=== PATIENT | female | born 1955 | race Caucasian/White ===

== ENCOUNTER → 2019-12-15 11:47 | Outpatient (CLI) | payer MEDICARE, OTHER, SELFPAY ==
[2019-12-02 09:41] VITALS: BMI 25.4
--- NOTE | 2019-12-15 | BRBX_PTH ---
PATIENT: PATRICIA EGAN LOC: [facility] U#:[id number] AGE/SX: 69/F ROOM: RE12/15/[address]: Dr. Nate King MD : 1955 BED: DIS: SPEC #: [id number] RECD: 12/15/19 13:44 STATUS: JUSTINO YI #: [id number] CHRISTY: 12/15/19 00:[address]: Nate King DEPT: SURGICAL PATHOLOGY RECD BY: Cody Angeles Tissues: Right breast, NOS Procedures: Surgery Specimen Level IV HEADER OPERATION: Ultrasound-guided right breast biopsy PRE-OP DIAGNOSIS: Abnormal mammogram TISSUE SUBMITTED: Right breast MICROSCOPIC DIAGNOSIS Right breast, ultrasound-guided core biopsy: Fragments of benign breast tissue with focal dense fibrosis. Negative for atypia or malignancy. See comment. JO ANN:olimpia 12/17/19 COMMENT Correlation with clinical, radiologic findings and appropriate follow up are necessary. Case has been reviewed in consultation with Dr. Webb who concurs with the above diagnosis. IDC:AM MICROSCOPIC DESCRIPTION Slides are reviewed. GROSS DESCRIPTION Received in fixative is one container labeled with the patient's name and designated right breast. The specimen consists of multiple irregular and elongated fragments of yellow-mendoza soft tissue that in aggregate measure 2 x 0.5 x 0.1 cm. The specimen is totally submitted in one cassette. / AM:olimpia 12/16/19 TC:5 CPT: 28866
--- NOTE | 2019-12-15 11:51 | US_ITS ---
MAMMOGRAPHY - UNILATERAL DIAGNOSTIC: RIGHT BREAST REASON FOR EXAM: Female, 64 years old. Biopsy rt breast 9:00 +4 PERTINENT HISTORY: Non-contributory. TECHNIQUE: Digital examination. Mediolateral oblique (MLO) and craniocaudad (CC) views of the breast were obtained. CAD: COMPARISON: Comparison is made with prior ultrasound dated December 15, 2019. FINDINGS: Breast Composition: The breasts are heterogeneously dense, which may obscure small masses. A tissue clip marker is seen in the anterior upper lateral aspect of the right breast. No other significant abnormalities are identified. US/US Breast Biopsy 1st Lesion IMPRESSION: A tissue clip marker is seen in the anterior upper lateral portion of the right breast. ASSESSMENT CATEGORY: BIRADS Category 2: Benign. A letter regarding these results will be sent to the patient by the facility within 30 days. FOLLOW-UP RECOMMENDATION: Approximately 10% of breast cancers are not detected by mammography. A normal mammogram should not delay biopsy of a clinically suspicious abnormality. Electronically Signed: Mario Alberto Dowd, at 14:11 EDT , Service support ,
--- NOTE | 2019-12-15 13:24 | PCM.OPRPT ---
Problem List (1) Abnormal mammogram of right breast Status: Acute Report of Operation Date of Procedure: 12/15/19 Pre-Operative Diagnosis: Abnormal mammogram right Post-Operative Diagnosis: Same Surgery/Procedure Performed:: Ultrasound-guided handheld mammotome breast biopsy right Type of Anesthesia:: Local Estimated Blood Loss (mL): < 25 cc Description of Procedure: Was brought into the ultrasound room. Ultrasound of the right breast in the upper outer quadrant revealed the lesion in question. Prepped the skin with chlorhexidine. I injected 1% lidocaine plain. I injected local posterior to the lesion. A skin darlene was made. Needle was directed posterior to the lesion with ultrasound guidance numerous biopsies of this lesion were obtained until I shaved it nearly completely gone. Under ultrasound guidance a titanium clip was placed. Sterile dressings were applied. The patient tolerated the procedure well. - Admit VTE Documentation VTE Present on Admission: No VTE Mechan Device Prophylaxis: None VTE Pharm Prophylaxis ordered?: No Reason prophylaxis not ordered:: Treatment Not Indicated [id number]: [id number] Bx breast 1st lesion us imag
--- NOTE | 2019-12-15 13:27 | DCINST_ITS ---
Discharge Diet: No Restrictions Discharge Activity: Return to Normal Activity May shower in (days): 3 Remove Dressing in (days):: 3 - Leave Dermabond in place. Allergies/Adverse Reactions: Allergies No Known Allergies Allergy (Unverified 12/02/19 09:42) Medications to take at Discharge gabapentin 300 mg capsule PO 12/02/19 lisinopril 10 mg tablet PO BID tab 12/02/19 oxycodone-acetaminophen 5 mg-325 mg tablet PO BID tab 12/02/19 rosuvastatin 10 mg tablet mg PO 12/02/19 Primary Care Physician: JED BERRIOS [Other] Test Results: Test results from this visit will be discussed in further detail at your follow- up appointment, if applicable. Please Follow Up With: Nate King MD - [phone] When: Please call for an appointment to be seen in one week.
--- NOTE | 2019-12-15 13:28 | BI_ITS ---
ULTRASOUND GUIDED RIGHT BREAST BIOPSY. DATE: December 15, 2019 CLINICAL INDICATION: Female, 64 years old. Right breast nodule. COMPLICATIONS: None immediate. PROCEDURE: Under direct sonographic guidance, the surgeon performed multiple core biopsies of the 1 cm x 0.4 cm x 0.8 cm hypoechoic nodule at the 9:00 position of the breast at 4 sinus from the nipple. BI/DIAG MAMM W/CAD, UNILAT IMPRESSION: Ultrasound-guided core needle biopsy of a mass in the right breast at the 9 o''clock position, without complication. Electronically Signed: Mario Alberto Dowd, at 14:09 EDT , Service support ,
== END ==
LOC: OPUS 11:49
PROVIDERS: Referring Provider Surgery; Visit Provider Surgery
DX: R92.8 Other abnormal and inconclusive findings on diagnostic imaging of breast (principal)
CPT/HCPCS: 19083; 77065; 88305